=== PATIENT | female | born 1950 | race Caucasian/White ===

== ENCOUNTER 2021-12-30 18:59 | Inpatient (IN) ==
[2021-12-30 20:04] LABS: Basophils # 0.1 K/mcL (0.0-0.2); Basophils % 0.6 %; Eosinophils # 0.2 K/mcL (0.0-0.6); Eosinophils % 1.8 %; Hematocrit 38.8 % (35.3-44.9); Hemoglobin 12.6 g/dL (11.5-15.4); Immature Granulocytes % 0.4 % (0-4); Lymphocytes # 2.4 K/mcL (0.6-4.6); Lymphocytes % 23.3 %; Mean Corpuscular HGB Conc 32.5 g/dL (31.6-35.5); Mean Corpuscular Hemoglobin 27.6 pg (28.0-33.3); Mean Corpuscular Volume 84.9 fL (83.0-100.0); Mean Platelet Volume 11.6 fL (9.4-12.4); Monocytes # 0.7 K/mcL (0.0-1.3); Monocytes % 7.3 %; Neutrophils # 6.7 K/mcL (1.6-8.9); Platelet Count 305 K/mcL (140-400); Red Blood Count 4.57 M/mcL (3.82-4.97); Red Cell Distribution Width 15.2 % (11.5-14.5); Segmented Neutrophils % 66.6 %; White Blood Count 10.1 K/mcL (4.3-11.1)
[2021-12-30 20:25] LABS: Potassium 4.6 mEq/L (3.5-5.1)
[2021-12-30] MEDS ORDERED: 0.9 % Sodium Chloride 1,000 ML IV ONE (20:46)
[2021-12-30] MEDS ORDERED: Ondansetron 4 MG/2 ML VIAL IVP ONE ×2 (20:58→21:06)
[2021-12-30 21:50] LABS: Albumin 3.5 g/dL (3.5-5.7); Albumin/Globulin Ratio 0.9 (1.1-2.2); Bilirubin,Direct 0.2 mg/dL (0.0-0.2); Bilirubin,Indirect 0.6 mg/dL (0.0-1.0); Bilirubin,Total 0.8 mg/dL (0.3-1.0); Globulin 3.9 g/dL (2.4-3.5); Total Protein 7.4 g/dL (6.4-8.9)
[2021-12-30 22:59] LABS: Bacteria,Urine Many per hpf (None-Few); Bilirubin,Urine Negative (Negative); Blood,Urine Moderate (Negative); Clarity,Urine Turbid (Clear); Color,Urine Yellow (Yellow); Glucose,Urine (UA) Normal (Normal); Ketones,Urine Negative (Negative); Leukocyte Esterase,Urine Large (Negative); Nitrite,Urine Negative (Negative); PH,Urine 6.5 pH Units (5.0-8.0); Protein,Urine 100 mg/dL (Neg-Trace); RBC,Urine 0-3 per hpf (0-3); Specific Gravity,Urine 1.015 (1.010-1.025); Squamous Epithelial Cell,Urine Many per hpf (None-Few); Urobilinogen,Urine Normal (Normal); WBC,Urine 50-100 per hpf (0-3)
[2021-12-30] MEDS ORDERED: cefTRIAXone 1,000 MG in Water for inj. (sterile) 10 ML IVP ONE (23:06)
[2021-12-30] MEDS ORDERED: Metoclopramide 10 MG/2 ML VIAL IVP ONE (23:40)
[2021-12-31] MEDS ORDERED: 0.9 % Sodium Chloride 1,000 ML IVC ONE (06:31)
[2021-12-31] MEDS ORDERED: Naloxone 0.4 MG/ML INJ IVP PRN (17:02)
[2021-12-31] MEDS ORDERED: Ondansetron 4 MG/2 ML VIAL IVP PRN (17:02)
[2021-12-31] MEDS ORDERED: Prochlorperazine 10 MG/2 ML VIAL IVP PRN (17:03)
[2021-12-31] MEDS ORDERED: *HR* OxyCODONE Oral Soln 5 MG/5 ML UD.LIQ PO PRN (17:07)
[2021-12-31 18:19] LABS: Acetaminophen < 10 mcg/mL (10-20); Salicylate < 2.5 mg/dL (15.0-30.0)
[2021-12-31 21:20] LABS: Hepatitis B Surface Antigen Nonreactive (Nonreactive)
[2021-12-31 21:49] LABS: Hepatitis B Core IgM Nonreactive (Nonreactive); Hepatitis C Virus Antibody Nonreactive (Nonreactive)
[2021-12-31 21:51] LABS: Hepatitis A Antibody IgM Nonreactive (Nonreactive)
[2021-12-31] MEDS: Melatonin 3 MG TABLET PO SCH (22:07)
[2022-01-01 01:41] LABS: Basophils # 0.1 K/mcL (0.0-0.2); Basophils % 0.7 %; Eosinophils # 0.2 K/mcL (0.0-0.6); Eosinophils % 2.5 %; Hematocrit 35.1 % (35.3-44.9); Immature Granulocytes % 0.3 % (0-4); Lymphocytes # 2.2 K/mcL (0.6-4.6); Lymphocytes % 24.7 %; Mean Corpuscular HGB Conc 31.3 g/dL (31.6-35.5); Mean Corpuscular Hemoglobin 27.1 pg (28.0-33.3); Mean Corpuscular Volume 86.5 fL (83.0-100.0); Mean Platelet Volume 11.4 fL (9.4-12.4); Monocytes # 0.7 K/mcL (0.0-1.3); Monocytes % 8.4 %; Neutrophils # 5.6 K/mcL (1.6-8.9); Platelet Count 256 K/mcL (140-400); Red Blood Count 4.06 M/mcL (3.82-4.97); Red Cell Distribution Width 15.3 % (11.5-14.5); Segmented Neutrophils % 63.4 %; White Blood Count 8.9 K/mcL (4.3-11.1)
[2022-01-01 02:09] LABS: Albumin/Globulin Ratio 0.9 (1.1-2.2); Bilirubin,Direct 0.4 mg/dL (0.0-0.2); Bilirubin,Indirect 0.4 mg/dL (0.0-1.0); Bilirubin,Total 0.8 mg/dL (0.3-1.0); Calcium 8.8 mg/dL (8.6-10.3); Globulin 3.3 g/dL (2.4-3.5); Potassium 4.3 mEq/L (3.5-5.1); Total Protein 6.3 g/dL (6.4-8.9)
[2022-01-01] MEDS: cefTRIAXone 1,000 MG in Water for inj. (sterile) 10 ML IVP SCH (09:28)
[2022-01-01] MEDS ORDERED: D5% in Water 1,000 ML IVC PRN (15:44)
[2022-01-01] MEDS ORDERED: Dextrose Gel 15 GM/37.5 ML TUBE PO PRN ×2 (15:44)
[2022-01-01] MEDS ORDERED: *HR* Dextrose 50 % in Water (Syg) 50 ML SYRINGE IVP PRN (15:44)
[2022-01-01] MEDS: *HR* Enoxaparin 40 MG/0.4 ML SYRINGE SQ SCH (16:10)
[2022-01-01] MEDS: 0.9 % Sodium Chloride 1,000 ML IVC SCH (16:11)
[2022-01-01 17:52] LABS: Estimated Average Glucose 157 mg/dl; Hemoglobin A1C 7.1 %
[2022-01-01] MEDS: Melatonin 3 MG TABLET PO SCH (20:25)
[2022-01-02] MEDS: 0.9 % Sodium Chloride 1,000 ML IVC SCH ×3 (01:00→16:05)
[2022-01-02 03:33] LABS: Hematocrit 30.6 % (35.3-44.9); Hemoglobin 9.5 g/dL (11.5-15.4); Mean Corpuscular Hemoglobin 27.6 pg (28.0-33.3); Mean Platelet Volume 11.6 fL (9.4-12.4); Platelet Count 231 K/mcL (140-400); Red Blood Count 3.44 M/mcL (3.82-4.97); Red Cell Distribution Width 15.4 % (11.5-14.5); White Blood Count 10.3 K/mcL (4.3-11.1)
[2022-01-02 03:58] LABS: Calcium 8.2 mg/dL (8.6-10.3); Potassium 3.4 mEq/L (3.5-5.1)
[2022-01-02] MEDS: *HR* Enoxaparin 40 MG/0.4 ML SYRINGE SQ SCH (05:15)
[2022-01-02] MEDS: cefTRIAXone 1,000 MG in Water for inj. (sterile) 10 ML IVP SCH (08:42)
[2022-01-02] MEDS: Sennosides/Docusate Sodium TABLET PO SCH (15:22)
[2022-01-02] MEDS: Melatonin 3 MG TABLET PO SCH (21:44)
[2022-01-03] MEDS: 0.9 % Sodium Chloride 1,000 ML IVC SCH ×3 (00:33→18:44)
[2022-01-03] MEDS: *HR* Enoxaparin 40 MG/0.4 ML SYRINGE SQ SCH (05:26)
[2022-01-03 05:53] LABS: Hematocrit 30.1 % (35.3-44.9); Mean Corpuscular HGB Conc 30.6 g/dL (31.6-35.5); Mean Corpuscular Hemoglobin 27.2 pg (28.0-33.3); Mean Corpuscular Volume 89.1 fL (83.0-100.0); Mean Platelet Volume 11.3 fL (9.4-12.4); Platelet Count 223 K/mcL (140-400); Red Blood Count 3.38 M/mcL (3.82-4.97); Red Cell Distribution Width 15.4 % (11.5-14.5); White Blood Count 8.8 K/mcL (4.3-11.1)
[2022-01-03 05:54] LABS: Hemoglobin 9.2 g/dL (11.5-15.4)
[2022-01-03 06:01] LABS: Magnesium 1.2 mg/dL (1.6-2.6); Potassium 3.5 mEq/L (3.5-5.1)
[2022-01-03] MEDS: Sennosides/Docusate Sodium TABLET PO SCH (10:15)
[2022-01-03] MEDS: Melatonin 3 MG TABLET PO SCH (21:21)
[2022-01-04] MEDS: *HR* Enoxaparin 40 MG/0.4 ML SYRINGE SQ SCH (04:25)
[2022-01-04] MEDS: Ondansetron 4 MG/2 ML VIAL IVP PRN ×2 (05:04→09:08)
[2022-01-04 08:36] LABS: Hematocrit 31.8 % (35.3-44.9); Hemoglobin 9.7 g/dL (11.5-15.4); Mean Corpuscular HGB Conc 30.5 g/dL (31.6-35.5); Mean Corpuscular Hemoglobin 27.8 pg (28.0-33.3); Mean Corpuscular Volume 91.1 fL (83.0-100.0); Platelet Count 217 K/mcL (140-400); Red Blood Count 3.49 M/mcL (3.82-4.97); Red Cell Distribution Width 15.8 % (11.5-14.5); White Blood Count 8.9 K/mcL (4.3-11.1)
[2022-01-04 08:57] LABS: Calcium 7.7 mg/dL (8.6-10.3); Potassium 3.4 mEq/L (3.5-5.1)
[2022-01-04] MEDS: Sennosides/Docusate Sodium TABLET PO SCH (09:01)
[2022-01-04] MEDS: 0.9 % Sodium Chloride 1,000 ML IVC SCH ×2 (09:04→13:35)
[2022-01-04] MEDS: *HR* Metformin 500 MG TABLET PO SCH (16:47)
[2022-01-04] MEDS: Melatonin 3 MG TABLET PO SCH (21:43)
[2022-01-05] MEDS: *HR* Enoxaparin 40 MG/0.4 ML SYRINGE SQ SCH (05:46)
[2022-01-05 07:45] LABS: Calcium 7.8 mg/dL (8.6-10.3); Potassium 3.6 mEq/L (3.5-5.1)
[2022-01-05] MEDS: *HR* Metformin 500 MG TABLET PO SCH (08:52)
[2022-01-05] MEDS: Sennosides/Docusate Sodium TABLET PO SCH (08:53)
[2022-01-05] MEDS: Ondansetron 4 MG/2 ML VIAL IVP PRN ×2 (09:00→14:56)
[2022-01-05] MEDS: Melatonin 3 MG TABLET PO SCH (21:17)
[2022-01-06] MEDS: *HR* Enoxaparin 40 MG/0.4 ML SYRINGE SQ SCH (05:42)
[2022-01-06] MEDS: *HR* Metformin 500 MG TABLET PO SCH (07:56)
[2022-01-06] MEDS: Sennosides/Docusate Sodium TABLET PO SCH (07:56)
[2022-01-06] MEDS: Melatonin 3 MG TABLET PO SCH (21:40)
[2022-01-06] MEDS: Ondansetron 4 MG/2 ML VIAL IVP PRN (21:53)
[2022-01-07] MEDS: *HR* Enoxaparin 40 MG/0.4 ML SYRINGE SQ SCH (05:56)
[2022-01-07] MEDS: Sennosides/Docusate Sodium TABLET PO SCH (10:31)
[2022-01-07] MEDS: Melatonin 3 MG TABLET PO SCH (20:25)
[2022-01-07] MEDS: Ondansetron 4 MG/2 ML VIAL IVP PRN (20:28)
[2022-01-08] MEDS: *HR* Enoxaparin 40 MG/0.4 ML SYRINGE SQ SCH (05:35)
[2022-01-08] MEDS: Sennosides/Docusate Sodium TABLET PO SCH (09:17)
[2022-01-08] MEDS: Melatonin 3 MG TABLET PO SCH (20:15)
[2022-01-08] MEDS: Ondansetron 4 MG/2 ML VIAL IVP PRN (20:28)
[2022-01-09] MEDS: *HR* Enoxaparin 40 MG/0.4 ML SYRINGE SQ SCH (05:24)
[2022-01-09] MEDS: Sennosides/Docusate Sodium TABLET PO SCH (09:40)
[2022-01-09] MEDS: Ondansetron 4 MG/2 ML VIAL IVP PRN (09:47)
[2022-01-09] MEDS: Melatonin 3 MG TABLET PO SCH (23:02)
[2022-01-10] MEDS: *HR* Enoxaparin 40 MG/0.4 ML SYRINGE SQ SCH (05:22)
[2022-01-10] MEDS: Sennosides/Docusate Sodium TABLET PO SCH (09:39)
[2022-01-10] MEDS: Ondansetron 4 MG/2 ML VIAL IVP PRN (09:43)
[2022-01-10 15:04] LABS: Albumin 2.6 g/dL (3.5-5.7); Albumin/Globulin Ratio 0.9 (1.1-2.2); Bilirubin,Direct 0.1 mg/dL (0.0-0.2); Bilirubin,Indirect 0.4 mg/dL (0.0-1.0); Bilirubin,Total 0.5 mg/dL (0.3-1.0); Calcium 7.4 mg/dL (8.6-10.3); Potassium 2.9 mEq/L (3.5-5.1); Total Protein 5.6 g/dL (6.4-8.9)
[2022-01-10] MEDS: Melatonin 3 MG TABLET PO SCH (20:14)
[2022-01-11] MEDS: *HR* Enoxaparin 40 MG/0.4 ML SYRINGE SQ SCH (05:57)
[2022-01-11] MEDS: Sennosides/Docusate Sodium TABLET PO SCH (10:41)
[2022-01-11] MEDS ORDERED: 0.9 % Sodium Chloride 1,000 ML ONE (10:43)
[2022-01-11] MEDS: Melatonin 3 MG TABLET PO SCH (21:52)
[2022-01-12 02:17] LABS: Basophils % 0.3 %; Eosinophils # 0.2 K/mcL (0.0-0.6); Eosinophils % 1.5 %; Hemoglobin 9.5 g/dL (11.5-15.4); Immature Granulocytes % 0.5 % (0-4); Lymphocytes # 2.4 K/mcL (0.6-4.6); Lymphocytes % 20.7 %; Mean Corpuscular HGB Conc 31.7 g/dL (31.6-35.5); Mean Corpuscular Hemoglobin 27.5 pg (28.0-33.3); Monocytes # 1.1 K/mcL (0.0-1.3); Monocytes % 9.4 %; Neutrophils # 7.9 K/mcL (1.6-8.9); Platelet Count 348 K/mcL (140-400); Red Blood Count 3.45 M/mcL (3.82-4.97); Red Cell Distribution Width 15.3 % (11.5-14.5); Segmented Neutrophils % 67.6 %; White Blood Count 11.8 K/mcL (4.3-11.1)
[2022-01-12 02:40] LABS: Albumin 2.5 g/dL (3.5-5.7); Albumin/Globulin Ratio 0.8 (1.1-2.2); Bilirubin,Total 0.4 mg/dL (0.3-1.0); Calcium 7.2 mg/dL (8.6-10.3); Globulin 3.1 g/dL (2.4-3.5); Total Protein 5.6 g/dL (6.4-8.9)
[2022-01-12] MEDS: *HR* Enoxaparin 40 MG/0.4 ML SYRINGE SQ SCH (06:31)
[2022-01-12] MEDS: Sennosides/Docusate Sodium TABLET PO SCH (09:55)
[2022-01-12] MEDS: Acetaminophen 325 MG TABLET PO PRN (16:11)
[2022-01-12] MEDS: Ondansetron 4 MG/2 ML VIAL IVP PRN (16:24)
[2022-01-12] MEDS: Melatonin 3 MG TABLET PO SCH (20:39)
[2022-01-13] MEDS: *HR* Enoxaparin 40 MG/0.4 ML SYRINGE SQ SCH (04:45)
[2022-01-13] MEDS: Sennosides/Docusate Sodium TABLET PO SCH (08:48)
[2022-01-13] MEDS: Ondansetron 4 MG/2 ML VIAL IVP PRN (08:53)
[2022-01-13] MEDS: Melatonin 3 MG TABLET PO SCH (20:23)
[2022-01-14] MEDS: Acetaminophen 325 MG TABLET PO PRN ×2 (02:55→20:41)
[2022-01-14] MEDS: *HR* Enoxaparin 40 MG/0.4 ML SYRINGE SQ SCH (05:42)
[2022-01-14 06:09] LABS: Basophils # 0.1 K/mcL (0.0-0.2); Basophils % 0.7 %; Eosinophils # 0.1 K/mcL (0.0-0.6); Eosinophils % 0.8 %; Hematocrit 29.7 % (35.3-44.9); Hemoglobin 9.5 g/dL (11.5-15.4); Immature Granulocytes % 0.8 % (0-4); Lymphocytes # 2.7 K/mcL (0.6-4.6); Lymphocytes % 21.6 %; Mean Corpuscular Hemoglobin 27.5 pg (28.0-33.3); Mean Corpuscular Volume 86.1 fL (83.0-100.0); Mean Platelet Volume 10.6 fL (9.4-12.4); Monocytes # 1.3 K/mcL (0.0-1.3); Monocytes % 10.3 %; Neutrophils # 8.1 K/mcL (1.6-8.9); Platelet Count 366 K/mcL (140-400); Red Blood Count 3.45 M/mcL (3.82-4.97); Red Cell Distribution Width 15.3 % (11.5-14.5); Segmented Neutrophils % 65.8 %; White Blood Count 12.3 K/mcL (4.3-11.1)
[2022-01-14 06:30] LABS: Potassium 3.2 mEq/L (3.5-5.1)
[2022-01-14] MEDS: cefTRIAXone 1,000 MG in 0.9 % Sodium Chloride 10 ML IVP SCH (09:50)
[2022-01-14] MEDS: Sennosides/Docusate Sodium TABLET PO SCH (09:50)
[2022-01-14] MEDS ORDERED: Potassium Chloride Elixir 20 MEQ/15 ML UDC PO ONE (10:51)
[2022-01-14 15:26] LABS: Bacteria,Urine Few per hpf (None-Few); Bilirubin,Urine Negative (Negative); Blood,Urine Negative (Negative); Clarity,Urine Turbid (Clear); Color,Urine Yellow (Yellow); Glucose,Urine (UA) Normal (Normal); Ketones,Urine Negative (Negative); Leukocyte Esterase,Urine Large (Negative); Nitrite,Urine Negative (Negative); Protein,Urine 50 mg/dL (Neg-Trace); Squamous Epithelial Cell,Urine Moderate per hpf (None-Few); Transitional Epi Cells,Urine Few per hpf (None-Few); Urobilinogen,Urine Normal (Normal)
[2022-01-14] MEDS: Melatonin 3 MG TABLET PO SCH (20:41)
[2022-01-14] MEDS: Ondansetron 4 MG/2 ML VIAL IVP PRN (20:51)
[2022-01-15] MEDS: Acetaminophen 325 MG TABLET PO PRN (02:53)
[2022-01-15] MEDS: Ondansetron 4 MG/2 ML VIAL IVP PRN (03:04)
[2022-01-15] MEDS: *HR* Enoxaparin 40 MG/0.4 ML SYRINGE SQ SCH (05:20)
[2022-01-15 05:21] LABS: Basophils # 0.1 K/mcL (0.0-0.2); Basophils % 0.5 %; Eosinophils # 0.1 K/mcL (0.0-0.6); Eosinophils % 0.8 %; Hematocrit 31.1 % (35.3-44.9); Hemoglobin 9.9 g/dL (11.5-15.4); Immature Granulocytes % 0.5 % (0-4); Lymphocytes # 2.1 K/mcL (0.6-4.6); Lymphocytes % 18.3 %; Mean Corpuscular HGB Conc 31.8 g/dL (31.6-35.5); Mean Corpuscular Volume 84.7 fL (83.0-100.0); Mean Platelet Volume 10.4 fL (9.4-12.4); Monocytes % 8.9 %; Neutrophils # 8.2 K/mcL (1.6-8.9); Platelet Count 402 K/mcL (140-400); Red Blood Count 3.67 M/mcL (3.82-4.97); Red Cell Distribution Width 15.1 % (11.5-14.5); White Blood Count 11.6 K/mcL (4.3-11.1)
[2022-01-15 05:39] LABS: Calcium 6.9 mg/dL (8.6-10.3); Potassium 3.4 mEq/L (3.5-5.1)
[2022-01-15] MEDS: cefTRIAXone 1,000 MG in 0.9 % Sodium Chloride 10 ML IVP SCH (08:32)
[2022-01-15] MEDS: Sennosides/Docusate Sodium TABLET PO SCH (08:32)
[2022-01-15] MEDS: Melatonin 3 MG TABLET PO SCH (20:34)
[2022-01-16 02:55] LABS: VBG Ionized Calcium 0.88 mmol/L (1.15-1.35)
[2022-01-16 03:15] LABS: Albumin 2.5 g/dL (3.5-5.7); Albumin/Globulin Ratio 0.8 (1.1-2.2); Bilirubin,Total 0.5 mg/dL (0.3-1.0); Calcium 6.7 mg/dL (8.6-10.3); Globulin 3.3 g/dL (2.4-3.5); Magnesium 0.5 mg/dL (1.6-2.6); Potassium 3.3 mEq/L (3.5-5.1); Total Protein 5.8 g/dL (6.4-8.9)
[2022-01-16] MEDS: *HR* Enoxaparin 40 MG/0.4 ML SYRINGE SQ SCH (05:32)
[2022-01-16] MEDS ORDERED: Potassium Chloride Elixir 20 MEQ/15 ML UDC PO ONE (07:59)
[2022-01-16] MEDS: Sennosides/Docusate Sodium TABLET PO SCH (08:29)
[2022-01-16] MEDS: cefTRIAXone 1,000 MG in 0.9 % Sodium Chloride 10 ML IVP SCH (09:32)
[2022-01-16] MEDS: Nitrofurantoin (BID) 100 MG CAPSULE PO SCH (17:42)
[2022-01-16] MEDS: Melatonin 3 MG TABLET PO SCH (22:09)
[2022-01-17 04:48] LABS: Basophils # 0.1 K/mcL (0.0-0.2); Basophils % 0.5 %; Eosinophils # 0.2 K/mcL (0.0-0.6); Eosinophils % 1.9 %; Hematocrit 30.1 % (35.3-44.9); Hemoglobin 9.3 g/dL (11.5-15.4); Immature Granulocytes % 0.8 % (0-4); Lymphocytes # 2.6 K/mcL (0.6-4.6); Lymphocytes % 25.2 %; Mean Corpuscular HGB Conc 30.9 g/dL (31.6-35.5); Mean Corpuscular Hemoglobin 26.5 pg (28.0-33.3); Mean Corpuscular Volume 85.8 fL (83.0-100.0); Mean Platelet Volume 10.1 fL (9.4-12.4); Monocytes # 0.9 K/mcL (0.0-1.3); Monocytes % 8.6 %; Neutrophils # 6.5 K/mcL (1.6-8.9); Platelet Count 462 K/mcL (140-400); Red Blood Count 3.51 M/mcL (3.82-4.97); Red Cell Distribution Width 15.3 % (11.5-14.5); White Blood Count 10.3 K/mcL (4.3-11.1)
[2022-01-17] MEDS: *HR* Enoxaparin 40 MG/0.4 ML SYRINGE SQ SCH (05:09)
[2022-01-17 05:12] LABS: Calcium 6.9 mg/dL (8.6-10.3); Potassium 3.6 mEq/L (3.5-5.1)
[2022-01-17] MEDS: Sennosides/Docusate Sodium TABLET PO SCH (08:06)
[2022-01-17] MEDS: Nitrofurantoin (BID) 100 MG CAPSULE PO SCH ×2 (08:06→17:22)
[2022-01-17] MEDS: Melatonin 3 MG TABLET PO SCH (20:57)
[2022-01-18] MEDS: *HR* Enoxaparin 40 MG/0.4 ML SYRINGE SQ SCH (05:54)
[2022-01-18] MEDS: Nitrofurantoin (BID) 100 MG CAPSULE PO SCH ×2 (07:59→16:53)
[2022-01-18] MEDS: Sennosides/Docusate Sodium TABLET PO SCH (08:00)
[2022-01-19] MEDS: Melatonin 3 MG TABLET PO SCH ×2 (03:33→22:11)
[2022-01-19 05:24] LABS: Calcium 7.9 mg/dL (8.6-10.3); Potassium 3.6 mEq/L (3.5-5.1)
[2022-01-19] MEDS: *HR* Enoxaparin 40 MG/0.4 ML SYRINGE SQ SCH (05:41)
[2022-01-19] MEDS: Acetaminophen 325 MG TABLET PO PRN (08:06)
[2022-01-19] MEDS: Sennosides/Docusate Sodium TABLET PO SCH (08:07)
[2022-01-19] MEDS: Nitrofurantoin (BID) 100 MG CAPSULE PO SCH ×2 (08:07→17:10)
[2022-01-19] MEDS ORDERED: polyethylene glycoL 3350 17 GM POWD.PACK PO PRN (14:51)
[2022-01-19] MEDS: Ondansetron 4 MG/2 ML VIAL IVP PRN (22:23)
[2022-01-20] MEDS: *HR* Enoxaparin 40 MG/0.4 ML SYRINGE SQ SCH (06:06)
[2022-01-20] MEDS: Nitrofurantoin (BID) 100 MG CAPSULE PO SCH ×2 (10:30→17:08)
[2022-01-20] MEDS ORDERED: GI Cocktail 40 ML EACH PO ONE (20:50)
[2022-01-20] MEDS ORDERED: Prochlorperazine 10 MG/2 ML VIAL IVP ONE (21:18)
[2022-01-20] MEDS: Ondansetron 4 MG/2 ML VIAL IVP PRN (21:19)
[2022-01-21] MEDS: Melatonin 3 MG TABLET PO SCH ×2 (01:05→22:23)
[2022-01-21] MEDS: *HR* Enoxaparin 40 MG/0.4 ML SYRINGE SQ SCH (06:07)
[2022-01-21] MEDS: Nitrofurantoin (BID) 100 MG CAPSULE PO SCH (08:54)
[2022-01-21 10:23] LABS: Adenovirus Not Detected (Not Detect); Bordetella Pertussis Not Detected (Not Detect); Chlamydophila pneumoniae Not Detected (Not Detect); Coronavirus 229E Not Detected (Not Detect); Coronavirus HKU1 Not Detected (Not Detect); Coronavirus NL63 Not Detected (Not Detect); Coronavirus OC43 Not Detected (Not Detect); Human Metapneumovirus Not Detected (Not Detect); Human Rhinovirus/Enterovirus Not Detected (Not Detect); Influenza A Subtype 2009 H1 Not Detected (Not Detect); Influenza B Not Detected (Not Detect); Mycoplasma pneumoniae Not Detected (Not Detect); Parainfluenza Virus 1 Not Detected (Not Detect); Parainfluenza Virus 2 Not Detected (Not Detect); Parainfluenza Virus 3 Not Detected (Not Detect); Parainfluenza Virus 4 Not Detected (Not Detect); Respiratory Syncytial Virus Not Detected (Not Detect); SARS-CoV-2 Not Detected (Not Detect)
[2022-01-21] MEDS ORDERED: Acetaminophen IV 1,000 MG/100 ML BAG IVPB ONE (10:38)
[2022-01-21] MEDS: Fluticasone Propionate Nasal 50 MCG/SPRAY BOTTLE NS SCH (11:31)
[2022-01-21] MEDS: Ondansetron 4 MG/2 ML VIAL IVP PRN ×2 (17:32→21:41)
[2022-01-22 05:19] LABS: Basophils # 0.1 K/mcL (0.0-0.2); Basophils % 0.9 %; Eosinophils # 0.5 K/mcL (0.0-0.6); Eosinophils % 4.8 %; Hematocrit 33.8 % (35.3-44.9); Hemoglobin 10.3 g/dL (11.5-15.4); Immature Granulocytes % 0.9 % (0-4); Lymphocytes # 2.4 K/mcL (0.6-4.6); Lymphocytes % 22.8 %; Mean Corpuscular HGB Conc 30.5 g/dL (31.6-35.5); Mean Corpuscular Hemoglobin 26.5 pg (28.0-33.3); Mean Corpuscular Volume 86.9 fL (83.0-100.0); Mean Platelet Volume 9.4 fL (9.4-12.4); Monocytes # 0.7 K/mcL (0.0-1.3); Monocytes % 6.3 %; Neutrophils # 6.8 K/mcL (1.6-8.9); Platelet Count 512 K/mcL (140-400); Red Blood Count 3.89 M/mcL (3.82-4.97); Red Cell Distribution Width 15.5 % (11.5-14.5); Segmented Neutrophils % 64.3 %; White Blood Count 10.6 K/mcL (4.3-11.1)
[2022-01-22 05:38] LABS: Calcium 8.7 mg/dL (8.6-10.3)
[2022-01-22] MEDS: *HR* Enoxaparin 40 MG/0.4 ML SYRINGE SQ SCH (05:59)
[2022-01-22] MEDS: Fluticasone Propionate Nasal 50 MCG/SPRAY BOTTLE NS SCH (08:12)
[2022-01-22] MEDS: Melatonin 3 MG TABLET PO SCH (22:10)
[2022-01-23] MEDS: *HR* Enoxaparin 40 MG/0.4 ML SYRINGE SQ SCH (06:22)
[2022-01-23] MEDS: Fluticasone Propionate Nasal 50 MCG/SPRAY BOTTLE NS SCH (09:59)
[2022-01-23] MEDS: Ondansetron 4 MG/2 ML VIAL IVP PRN (12:14)
[2022-01-23] MEDS: Melatonin 3 MG TABLET PO SCH (21:50)
[2022-01-24] MEDS: *HR* Enoxaparin 40 MG/0.4 ML SYRINGE SQ SCH (06:04)
[2022-01-24] MEDS: Fluticasone Propionate Nasal 50 MCG/SPRAY BOTTLE NS SCH (09:18)
[2022-01-24] MEDS: Melatonin 3 MG TABLET PO SCH (23:50)
[2022-01-25] MEDS: *HR* Enoxaparin 40 MG/0.4 ML SYRINGE SQ SCH (06:51)
[2022-01-25] MEDS: Fluticasone Propionate Nasal 50 MCG/SPRAY BOTTLE NS SCH (10:00)
[2022-01-25] MEDS ORDERED: Milk and Molasses Enema 200 ML RC ONE (16:35)
[2022-01-25] MEDS: Melatonin 3 MG TABLET PO SCH (22:00)
[2022-01-26] MEDS: *HR* Enoxaparin 40 MG/0.4 ML SYRINGE SQ SCH (05:38)
[2022-01-26] MEDS: Fluticasone Propionate Nasal 50 MCG/SPRAY BOTTLE NS SCH (08:41)
[2022-01-26] MEDS: Ondansetron 4 MG/2 ML VIAL IVP PRN (08:43)
[2022-01-26] MEDS: polyethylene glycoL 3350 17 GM POWD.PACK PO SCH (12:33)
[2022-01-26] MEDS: Acetaminophen 325 MG TABLET PO PRN (17:43)
[2022-01-26] MEDS: Melatonin 3 MG TABLET PO SCH (21:01)
[2022-01-27] MEDS: *HR* Enoxaparin 40 MG/0.4 ML SYRINGE SQ SCH (06:03)
[2022-01-27] MEDS ORDERED: Bisacodyl 10 MG RECTAL SUPPOSITORY RC ONE (08:55)
[2022-01-27] MEDS: polyethylene glycoL 3350 17 GM POWD.PACK PO SCH (09:10)
[2022-01-27] MEDS: Fluticasone Propionate Nasal 50 MCG/SPRAY BOTTLE NS SCH (09:12)
[2022-01-27] MEDS: Melatonin 3 MG TABLET PO SCH (20:10)
[2022-01-28] MEDS: *HR* Enoxaparin 40 MG/0.4 ML SYRINGE SQ SCH (06:08)
[2022-01-28] MEDS: polyethylene glycoL 3350 17 GM POWD.PACK PO SCH (11:08)
[2022-01-28] MEDS: Fluticasone Propionate Nasal 50 MCG/SPRAY BOTTLE NS SCH (11:08)
[2022-01-28] MEDS: Melatonin 3 MG TABLET PO SCH (20:00)
[2022-01-29] MEDS: *HR* Enoxaparin 40 MG/0.4 ML SYRINGE SQ SCH (05:18)
[2022-01-29] MEDS: polyethylene glycoL 3350 17 GM POWD.PACK PO SCH (10:43)
[2022-01-29] MEDS: Fluticasone Propionate Nasal 50 MCG/SPRAY BOTTLE NS SCH (10:43)
[2022-01-29] MEDS: Melatonin 3 MG TABLET PO SCH (22:06)
[2022-01-29] MEDS ORDERED: *HR* HYDROmorphone (PF) 1 MG/ML SYRINGE IVP ONE (22:53)
[2022-01-29] MEDS ORDERED: Prochlorperazine 10 MG/2 ML VIAL IVP ONE (23:08)
[2022-01-30] MEDS: *HR* Enoxaparin 40 MG/0.4 ML SYRINGE SQ SCH (05:40)
[2022-01-30] MEDS ORDERED: Acetaminophen IV 1,000 MG/100 ML BAG IVPB ONE (05:51)
[2022-01-30] MEDS: Fluticasone Propionate Nasal 50 MCG/SPRAY BOTTLE NS SCH (09:17)
[2022-01-30] MEDS: polyethylene glycoL 3350 17 GM POWD.PACK PO SCH (09:17)
[2022-01-30] MEDS ORDERED: *HR* OxyCODONE Immed Rel 5 MG TABLET PO PRN (15:38)
[2022-01-30] MEDS: Ondansetron 4 MG/2 ML VIAL IVP PRN (18:22)
[2022-01-30] MEDS: Melatonin 3 MG TABLET PO SCH (21:54)
[2022-01-31 01:54] LABS: Basophils # 0.1 K/mcL (0.0-0.2); Basophils % 0.6 %; Eosinophils # 0.2 K/mcL (0.0-0.6); Eosinophils % 1.7 %; Hematocrit 32.1 % (35.3-44.9); Hemoglobin 9.9 g/dL (11.5-15.4); Immature Granulocytes % 0.6 % (0-4); Lymphocytes # 3.7 K/mcL (0.6-4.6); Lymphocytes % 28.8 %; Mean Corpuscular HGB Conc 30.8 g/dL (31.6-35.5); Mean Corpuscular Hemoglobin 26.3 pg (28.0-33.3); Mean Corpuscular Volume 85.1 fL (83.0-100.0); Monocytes # 1.1 K/mcL (0.0-1.3); Monocytes % 8.4 %; Neutrophils # 7.6 K/mcL (1.6-8.9); Platelet Count 296 K/mcL (140-400); Red Blood Count 3.77 M/mcL (3.82-4.97); Red Cell Distribution Width 15.9 % (11.5-14.5); Segmented Neutrophils % 59.9 %; White Blood Count 12.7 K/mcL (4.3-11.1)
[2022-01-31 02:14] LABS: Calcium 8.5 mg/dL (8.6-10.3); Potassium 3.1 mEq/L (3.5-5.1)
[2022-01-31] MEDS: *HR* Enoxaparin 40 MG/0.4 ML SYRINGE SQ SCH (06:04)
[2022-01-31] MEDS: Fluticasone Propionate Nasal 50 MCG/SPRAY BOTTLE NS SCH (08:48)
[2022-01-31] MEDS: polyethylene glycoL 3350 17 GM POWD.PACK PO SCH (08:48)
[2022-01-31] MEDS: Ondansetron 4 MG/2 ML VIAL IVP PRN (15:51)
[2022-01-31] MEDS ORDERED: Metoclopramide 10 MG/2 ML VIAL IVP ONE (17:08)
[2022-01-31] MEDS ORDERED: *HR* LORazepam 2 MG/ML VIAL IVP ONE (18:54)
[2022-01-31] MEDS: Melatonin 3 MG TABLET PO SCH (20:14)
[2022-02-01] MEDS: *HR* Enoxaparin 40 MG/0.4 ML SYRINGE SQ SCH (06:00)
[2022-02-01] MEDS: polyethylene glycoL 3350 17 GM POWD.PACK PO SCH (08:48)
[2022-02-01] MEDS: Fluticasone Propionate Nasal 50 MCG/SPRAY BOTTLE NS SCH (08:54)
[2022-02-01] MEDS: Melatonin 3 MG TABLET PO SCH (20:58)
[2022-02-02] MEDS: *HR* Enoxaparin 40 MG/0.4 ML SYRINGE SQ SCH (05:42)
[2022-02-02] MEDS: polyethylene glycoL 3350 17 GM POWD.PACK PO SCH (09:28)
[2022-02-02] MEDS: Fluticasone Propionate Nasal 50 MCG/SPRAY BOTTLE NS SCH (09:29)
[2022-02-02] MEDS: Melatonin 3 MG TABLET PO SCH (20:33)
[2022-02-03] MEDS: *HR* Enoxaparin 40 MG/0.4 ML SYRINGE SQ SCH (06:16)
[2022-02-03] MEDS: Fluticasone Propionate Nasal 50 MCG/SPRAY BOTTLE NS SCH (10:11)
[2022-02-03] MEDS: polyethylene glycoL 3350 17 GM POWD.PACK PO SCH (10:11)
[2022-02-03] MEDS: Melatonin 3 MG TABLET PO SCH (22:10)
[2022-02-04] MEDS: *HR* Enoxaparin 40 MG/0.4 ML SYRINGE SQ SCH (06:24)
[2022-02-04] MEDS: polyethylene glycoL 3350 17 GM POWD.PACK PO SCH (10:05)
[2022-02-04] MEDS: Fluticasone Propionate Nasal 50 MCG/SPRAY BOTTLE NS SCH (10:06)
[2022-02-04] MEDS: Melatonin 3 MG TABLET PO SCH (20:08)
[2022-02-05] MEDS: *HR* Enoxaparin 40 MG/0.4 ML SYRINGE SQ SCH (05:46)
[2022-02-05] MEDS: polyethylene glycoL 3350 17 GM POWD.PACK PO SCH (08:50)
[2022-02-05] MEDS: Fluticasone Propionate Nasal 50 MCG/SPRAY BOTTLE NS SCH (08:50)
[2022-02-05] MEDS: Melatonin 3 MG TABLET PO SCH (21:36)
[2022-02-06] MEDS: *HR* Enoxaparin 40 MG/0.4 ML SYRINGE SQ SCH (05:49)
[2022-02-06] MEDS: polyethylene glycoL 3350 17 GM POWD.PACK PO SCH ×2 (10:20→10:23)
[2022-02-06] MEDS: Fluticasone Propionate Nasal 50 MCG/SPRAY BOTTLE NS SCH (10:21)
[2022-02-06] MEDS ORDERED: Ondansetron ODT 4 MG TAB.RAPDIS SL PRN (17:49)
[2022-02-06] MEDS: Melatonin 3 MG TABLET PO SCH ×2 (20:25→21:06)
[2022-02-07] MEDS: *HR* Enoxaparin 40 MG/0.4 ML SYRINGE SQ SCH (05:57)
[2022-02-07] MEDS: Fluticasone Propionate Nasal 50 MCG/SPRAY BOTTLE NS SCH (09:48)
[2022-02-07] MEDS: polyethylene glycoL 3350 17 GM POWD.PACK PO SCH (09:49)
[2022-02-07] MEDS: Melatonin 3 MG TABLET PO SCH (21:29)
[2022-02-08] MEDS: *HR* Enoxaparin 40 MG/0.4 ML SYRINGE SQ SCH (06:26)
[2022-02-08] MEDS: Fluticasone Propionate Nasal 50 MCG/SPRAY BOTTLE NS SCH (07:43)
[2022-02-08] MEDS: polyethylene glycoL 3350 17 GM POWD.PACK PO SCH (07:44)
[2022-02-08] MEDS ORDERED: Megestrol Acetate 400 MG/10 ML UDC PO SCH (09:00)
[2022-02-08] MEDS: Melatonin 3 MG TABLET PO SCH (20:44)
[2022-02-09] MEDS: *HR* Enoxaparin 40 MG/0.4 ML SYRINGE SQ SCH ×2 (06:30→07:50)
[2022-02-09] MEDS: polyethylene glycoL 3350 17 GM POWD.PACK PO SCH (07:49)
[2022-02-09] MEDS: Fluticasone Propionate Nasal 50 MCG/SPRAY BOTTLE NS SCH (07:56)
[2022-02-09] MEDS: Melatonin 3 MG TABLET PO SCH (19:13)
[2022-02-10] MEDS: *HR* Enoxaparin 40 MG/0.4 ML SYRINGE SQ SCH (05:21)
[2022-02-10] MEDS: Fluticasone Propionate Nasal 50 MCG/SPRAY BOTTLE NS SCH (08:39)
[2022-02-10] MEDS: polyethylene glycoL 3350 17 GM POWD.PACK PO SCH (08:44)
[2022-02-10] MEDS: Melatonin 3 MG TABLET PO SCH (21:20)
[2022-02-11 05:51] LABS: Basophils # 0.1 K/mcL (0.0-0.2); Basophils % 0.7 %; Eosinophils # 0.3 K/mcL (0.0-0.6); Eosinophils % 2.6 %; Hematocrit 35.2 % (35.3-44.9); Hemoglobin 11.1 g/dL (11.5-15.4); Immature Granulocytes % 0.5 % (0-4); Lymphocytes # 3.2 K/mcL (0.6-4.6); Mean Corpuscular HGB Conc 31.5 g/dL (31.6-35.5); Mean Corpuscular Volume 82.4 fL (83.0-100.0); Mean Platelet Volume 11.9 fL (9.4-12.4); Monocytes # 0.9 K/mcL (0.0-1.3); Monocytes % 6.5 %; Neutrophils # 8.6 K/mcL (1.6-8.9); Platelet Count 355 K/mcL (140-400); Red Blood Count 4.27 M/mcL (3.82-4.97); Red Cell Distribution Width 16.3 % (11.5-14.5); Segmented Neutrophils % 65.7 %; White Blood Count 13.1 K/mcL (4.3-11.1)
[2022-02-11 06:05] LABS: Albumin 3.5 g/dL (3.5-5.7); Albumin/Globulin Ratio 0.9 (1.1-2.2); Bilirubin,Total 0.6 mg/dL (0.3-1.0); Calcium 8.8 mg/dL (8.6-10.3); Globulin 3.8 g/dL (2.4-3.5); Potassium 3.1 mEq/L (3.5-5.1); Total Protein 7.3 g/dL (6.4-8.9)
[2022-02-11] MEDS: *HR* Enoxaparin 40 MG/0.4 ML SYRINGE SQ SCH (06:13)
[2022-02-11] MEDS: Insulin LISPRO 300 UNITS/3 ML VIAL SUBQ SCH ×3 (09:25→17:14)
[2022-02-11] MEDS: polyethylene glycoL 3350 17 GM POWD.PACK PO SCH ×2 (09:29→18:37)
[2022-02-11] MEDS: Fluticasone Propionate Nasal 50 MCG/SPRAY BOTTLE NS SCH (09:32)
[2022-02-11] MEDS: 0.9 % Sodium Chloride 1,000 ML IVC SCH ×2 (11:09→21:21)
[2022-02-11] MEDS: Melatonin 3 MG TABLET PO SCH (21:21)
[2022-02-12] MEDS: Insulin LISPRO 300 UNITS/3 ML VIAL SUBQ SCH ×4 (04:59→17:24)
[2022-02-12] MEDS: Fluticasone Propionate Nasal 50 MCG/SPRAY BOTTLE NS SCH (08:04)
[2022-02-12] MEDS: polyethylene glycoL 3350 17 GM POWD.PACK PO SCH (09:50)
[2022-02-12] MEDS: 0.9 % Sodium Chloride 1,000 ML IVC SCH ×2 (09:52→20:47)
[2022-02-12 12:05] LABS: Calcium 8.4 mg/dL (8.6-10.3); Magnesium 0.6 mg/dL (1.6-2.6)
[2022-02-12] MEDS: Ondansetron 4 MG/2 ML VIAL IVP PRN (17:21)
[2022-02-12] MEDS: *HR* Enoxaparin 40 MG/0.4 ML SYRINGE SQ SCH (20:46)
[2022-02-12] MEDS: Melatonin 3 MG TABLET PO SCH (20:47)
[2022-02-13] MEDS: Insulin LISPRO 300 UNITS/3 ML VIAL SUBQ SCH ×5 (06:13→21:12)
[2022-02-13] MEDS: *HR* Enoxaparin 40 MG/0.4 ML SYRINGE SQ SCH (07:45)
[2022-02-13] MEDS: Fluticasone Propionate Nasal 50 MCG/SPRAY BOTTLE NS SCH (07:48)
[2022-02-13] MEDS: polyethylene glycoL 3350 17 GM POWD.PACK PO SCH (07:48)
[2022-02-13] MEDS: 0.9 % Sodium Chloride 1,000 ML IVC SCH (07:48)
[2022-02-13] MEDS: Melatonin 3 MG TABLET PO SCH (21:09)
[2022-02-14] MEDS: *HR* Enoxaparin 40 MG/0.4 ML SYRINGE SQ SCH (04:50)
[2022-02-14] MEDS: Insulin LISPRO 300 UNITS/3 ML VIAL SUBQ SCH ×4 (07:44→21:13)
[2022-02-14] MEDS: Fluticasone Propionate Nasal 50 MCG/SPRAY BOTTLE NS SCH (08:59)
[2022-02-14] MEDS: polyethylene glycoL 3350 17 GM POWD.PACK PO SCH (09:00)
[2022-02-14] MEDS: Melatonin 3 MG TABLET PO SCH (20:53)
[2022-02-15] MEDS: *HR* Enoxaparin 40 MG/0.4 ML SYRINGE SQ SCH (05:57)
[2022-02-15] MEDS: Insulin LISPRO 300 UNITS/3 ML VIAL SUBQ SCH ×4 (09:24→21:43)
[2022-02-15] MEDS: Fluticasone Propionate Nasal 50 MCG/SPRAY BOTTLE NS SCH (09:24)
[2022-02-15] MEDS: Lactulose Oral Soln 20 GM/30 ML UDC PO SCH ×2 (12:25→21:43)
[2022-02-15] MEDS: polyethylene glycoL 3350 17 GM POWD.PACK PO SCH (12:25)
[2022-02-15] MEDS: Melatonin 3 MG TABLET PO SCH (21:43)
[2022-02-15] MEDS: Ondansetron 4 MG/2 ML VIAL IVP PRN (22:02)
[2022-02-16] MEDS: *HR* Enoxaparin 40 MG/0.4 ML SYRINGE SQ SCH (06:02)
[2022-02-16] MEDS: Insulin LISPRO 300 UNITS/3 ML VIAL SUBQ SCH ×4 (07:58→20:59)
[2022-02-16] MEDS: Fluticasone Propionate Nasal 50 MCG/SPRAY BOTTLE NS SCH (10:04)
[2022-02-16] MEDS: Lactulose Oral Soln 20 GM/30 ML UDC PO SCH ×2 (10:10→21:04)
[2022-02-16] MEDS: polyethylene glycoL 3350 17 GM POWD.PACK PO SCH (10:10)
[2022-02-16] MEDS: Melatonin 3 MG TABLET PO SCH (21:03)
[2022-02-16] MEDS: Ondansetron 4 MG/2 ML VIAL IVP PRN (21:11)
[2022-02-17] MEDS: *HR* Enoxaparin 40 MG/0.4 ML SYRINGE SQ SCH (05:59)
[2022-02-17] MEDS: Insulin LISPRO 300 UNITS/3 ML VIAL SUBQ SCH ×4 (08:25→21:47)
[2022-02-17] MEDS: Lactulose Oral Soln 20 GM/30 ML UDC PO SCH ×2 (09:35→21:47)
[2022-02-17] MEDS: polyethylene glycoL 3350 17 GM POWD.PACK PO SCH (09:35)
[2022-02-17] MEDS: Fluticasone Propionate Nasal 50 MCG/SPRAY BOTTLE NS SCH (09:36)
[2022-02-17] MEDS: Ondansetron 4 MG/2 ML VIAL IVP PRN (19:34)
[2022-02-17] MEDS: Melatonin 3 MG TABLET PO SCH (21:47)
[2022-02-18] MEDS: *HR* Enoxaparin 40 MG/0.4 ML SYRINGE SQ SCH (06:40)
[2022-02-18] MEDS: Insulin LISPRO 300 UNITS/3 ML VIAL SUBQ SCH ×4 (07:53→21:43)
[2022-02-18] MEDS: Lactulose Oral Soln 20 GM/30 ML UDC PO SCH ×2 (09:38→22:21)
[2022-02-18] MEDS: Fluticasone Propionate Nasal 50 MCG/SPRAY BOTTLE NS SCH (09:39)
[2022-02-18] MEDS: polyethylene glycoL 3350 17 GM POWD.PACK PO SCH (09:39)
[2022-02-18] MEDS: Ondansetron 4 MG/2 ML VIAL IVP PRN (14:29)
[2022-02-18] MEDS: Melatonin 3 MG TABLET PO SCH (20:14)
[2022-02-19 03:46] LABS: Basophils # 0.1 K/mcL (0.0-0.2); Basophils % 0.5 %; Eosinophils # 0.2 K/mcL (0.0-0.6); Eosinophils % 1.4 %; Hematocrit 32.4 % (35.3-44.9); Hemoglobin 10.2 g/dL (11.5-15.4); Immature Granulocytes % 0.5 % (0-4); Lymphocytes % 18.1 %; Mean Corpuscular HGB Conc 31.5 g/dL (31.6-35.5); Mean Corpuscular Hemoglobin 26.4 pg (28.0-33.3); Mean Corpuscular Volume 83.7 fL (83.0-100.0); Mean Platelet Volume 11.4 fL (9.4-12.4); Monocytes # 0.8 K/mcL (0.0-1.3); Monocytes % 6.8 %; Neutrophils # 8.1 K/mcL (1.6-8.9); Platelet Count 263 K/mcL (140-400); Red Blood Count 3.87 M/mcL (3.82-4.97); Red Cell Distribution Width 16.7 % (11.5-14.5); Segmented Neutrophils % 72.7 %; White Blood Count 11.1 K/mcL (4.3-11.1)
[2022-02-19 04:04] LABS: BUN/Creatinine Ratio 10 (6-26); Blood Urea Nitrogen 10 mg/dL (8-23); Calcium 7.8 mg/dL (8.6-10.3); Carbon Dioxide 16 mEq/L (23-29); Chloride 108 mEq/L (98-107); Glucose 112 mg/dL (70-105); Magnesium < 0.5 mg/dL (1.6-2.6); Osmolality,Calculated 284 (280-300); Potassium 3.2 mEq/L (3.5-5.1); Sodium 137 mEq/L (136-145)
[2022-02-19] MEDS: *HR* Enoxaparin 40 MG/0.4 ML SYRINGE SQ SCH (05:47)
[2022-02-19] MEDS: Insulin LISPRO 300 UNITS/3 ML VIAL SUBQ SCH ×4 (09:20→20:37)
[2022-02-19] MEDS: Ondansetron 4 MG/2 ML VIAL IVP PRN (10:05)
[2022-02-19] MEDS: Fluticasone Propionate Nasal 50 MCG/SPRAY BOTTLE NS SCH (10:17)
[2022-02-19] MEDS: polyethylene glycoL 3350 17 GM POWD.PACK PO SCH (10:17)
[2022-02-19] MEDS: Lactulose Oral Soln 20 GM/30 ML UDC PO SCH ×3 (10:17→20:34)
[2022-02-19] MEDS ORDERED: Iopamidol - 370 500 ML MLS IVP ONE (10:27)
[2022-02-19] MEDS: Metoclopramide 10 MG/2 ML VIAL IVP SCH ×2 (17:43→23:55)
[2022-02-19] MEDS: Melatonin 3 MG TABLET PO SCH (20:34)
[2022-02-20] MEDS: Metoclopramide 10 MG/2 ML VIAL IVP SCH ×4 (04:41→21:42)
[2022-02-20] MEDS: *HR* Enoxaparin 40 MG/0.4 ML SYRINGE SQ SCH (04:41)
[2022-02-20] MEDS: Insulin LISPRO 300 UNITS/3 ML VIAL SUBQ SCH ×4 (08:16→21:38)
[2022-02-20] MEDS: Lactulose Oral Soln 20 GM/30 ML UDC PO SCH ×3 (09:46→21:40)
[2022-02-20] MEDS: polyethylene glycoL 3350 17 GM POWD.PACK PO SCH (09:46)
[2022-02-20] MEDS: Fluticasone Propionate Nasal 50 MCG/SPRAY BOTTLE NS SCH (09:46)
[2022-02-20 13:38] LABS: Basophils % 0.4 %; Eosinophils % 0.3 %; Hematocrit 33.6 % (35.3-44.9); Hemoglobin 10.8 g/dL (11.5-15.4); Immature Granulocytes % 0.5 % (0-4); Lymphocytes # 1.5 K/mcL (0.6-4.6); Lymphocytes % 13.7 %; Mean Corpuscular HGB Conc 32.1 g/dL (31.6-35.5); Mean Corpuscular Hemoglobin 26.5 pg (28.0-33.3); Mean Corpuscular Volume 82.6 fL (83.0-100.0); Mean Platelet Volume 11.3 fL (9.4-12.4); Monocytes # 0.4 K/mcL (0.0-1.3); Monocytes % 3.6 %; Neutrophils # 9.2 K/mcL (1.6-8.9); Platelet Count 299 K/mcL (140-400); Red Blood Count 4.07 M/mcL (3.82-4.97); Red Cell Distribution Width 16.8 % (11.5-14.5); Segmented Neutrophils % 81.5 %; White Blood Count 11.2 K/mcL (4.3-11.1)
[2022-02-20 13:58] LABS: Albumin 3.1 g/dL (3.5-5.7); Albumin/Globulin Ratio 0.8 (1.1-2.2); Bilirubin,Total 1.1 mg/dL (0.3-1.0); Calcium 7.8 mg/dL (8.6-10.3); Globulin 3.7 g/dL (2.4-3.5); Potassium 3.1 mEq/L (3.5-5.1); Total Protein 6.8 g/dL (6.4-8.9)
[2022-02-20] MEDS ORDERED: Ondansetron ODT 4 MG TAB.RAPDIS SL SCH (18:00)
[2022-02-20 20:35] VITALS: BP 104/71; PULSE 108; TEMP 97.7; O2SAT 94
[2022-02-20] MEDS: Melatonin 3 MG TABLET PO SCH (21:40)
[2022-02-20] MEDS ORDERED: Metoclopramide 10 MG/2 ML VIAL IVP ONE (23:58)
[2022-02-20] MEDS ORDERED: Melatonin 3 MG TABLET PO ONE (23:58)
[2022-02-20] MEDS ORDERED: Lactulose Oral Soln 20 GM/30 ML UDC PO ONE (23:58)
== END 2022-02-20 23:59 | DRG 683 ==
LOC: 3ANU 18:59 → EMEROOARM 18:59 → SUATTDRO 12-31 15:17 → 3ANU 12-31 17:15 → SUATTDRO 01-02 15:58
PROVIDERS: ADMIT Student in an Organized Health Care Education/Training Program; ATTEND Hospitalist